=== PATIENT | female | born 1940 | race Caucasian/White ===

== ENCOUNTER 2020-08-02 13:41 | Inpatient (IN) | payer MEDICARE, OTHER ==
[2020-08-02] MEDS ORDERED: Dexamethasone 4 MG Tab PO PRN (21:52)
[2020-08-02] MEDS ORDERED: Non-Formulary Medication 1 Each PO PRN (21:52)
[2020-08-02] MEDS ORDERED: Non-Formulary Medication 1 Each (Olanzapine [Olanzapine] 10 MG Tablet) PO PRN (21:52)
[2020-08-02] MEDS ORDERED: Prochlorperazine 5 MG Tab PO PRN (21:52)
[2020-08-02] MEDS ORDERED: Lidocaine/Prilocaine 2.5-2.5% Crm 30 GM Tube TOP PRN (21:52)
[2020-08-02] MEDS ORDERED: Ondansetron 4 MG Tab.DIS PO PRN (21:52)
[2020-08-02] MEDS ORDERED: diphenhydrAMINE 25 MG Cap PO PRN (21:52)
[2020-08-02] MEDS ORDERED: MAGNESIUM HYDROXIDE PO PRN (21:52)
[2020-08-02] MEDS: Acetaminophen 325 MG Tab PO PRN (22:21)
[2020-08-02] MEDS: traMADol 50 MG Tab PO PRN (23:11)
[2020-08-02] MEDS: Simvastatin 20 MG Tab PO SCH (23:11)
[2020-08-03] MEDS ORDERED: MAG HYDROX PO PRN ×3 (05:47)
[2020-08-03] MEDS ORDERED: ALUM HYDROX PO PRN ×3 (05:47)
[2020-08-03] MEDS ORDERED: LIDOCAINE PO PRN ×3 (05:47)
[2020-08-03] MEDS ORDERED: SIMETH PO PRN ×3 (05:47)
[2020-08-03] MEDS ORDERED: DIPHENHYDRAMINE PO PRN ×3 (05:47)
[2020-08-03 08:06] LABS: ANION GAP 7.1 mmol/L (5-15); CHLORIDE,CL 101 mmol/L (98-107); SODIUM,NA 142 mmol/L (136-145)
[2020-08-03] MEDS: Hydrochlorothiazide 25 MG Tab PO SCH (08:23)
[2020-08-03] MEDS: Ascorbic Acid 500 MG Tab PO SCH (08:23)
[2020-08-03] MEDS: Aspirin 81 MG Tab.EC PO SCH ×2 (08:23→08:30)
[2020-08-03] MEDS ORDERED: Losartan 50 MG Tab PO SCH ×2 (09:00→13:30)
[2020-08-03] MEDS ORDERED: Hydrochlorothiazide 12.5 MG Cap PO SCH (09:00)
[2020-08-03] MEDS: Enoxaparin 40 MG/0.4 ML Syringe SUBCUT SCH (09:16)
[2020-08-03] MEDS: Docusate Sodium 100 MG Cap PO PRN (09:16)
[2020-08-03] MEDS: traMADol 50 MG Tab PO PRN ×2 (09:47→20:59)
[2020-08-03] MEDS ORDERED: Potassium Chloride 20 MEQ Tab.ER PO SCH (10:00)
--- NOTE | 2020-08-03 13:24 | PCM.HP.2 ---
H&P History of Present Illness - General Date of Service: 08/03/20 Admit Problem/Dx: Admission Diagnosis/Problem Admission Diagnosis/Problem Hysterectomy Source of Information: Patient History Limitations: Reports: No Limitations - History of Present Illness Initial Comments - Free Text/Narative: 79yr old female with a clinicalStage IIIC ovarian cancer, s/p Robotic total la paroscopic hysterectomy, left salpingo oophorectomy, omentectomy, tumor debulking, TAPS block on 07/30/2020. he tolerated the procedure well and was transferred to the [facility] floor in stable condition. Postoperatively, she did well. On postop day #1, she was tolerating a regular diet however had some nausea that was relieved by anti-emetics. Pain was well controlled on oral pain medications. Her creatinine was normal. Her hematocrit was stable and she was started on prophylactic doses of Lovenox. Her Fuller catheter was removed. She was able to void without difficulty. On postop day #2 she was hypoxic and required 0.5-1L O2. Chest X-ray revealed left large pleural effusion. She subsequently underwent a thoracentesis and had 950 ml of serous fluid removed. O2 sats improved to 92% on RA. She was hypokalemic upon discharge. Recommendations were for 40 mEq oral potassium. Her daughter transferred her to swing bed at the [facility]. Left Back Pain Score (Numeric/FACES): 4 - Related Data Allergies/Adverse Reactions: Allergies Allergy/AdvReac Type Severity Reaction Status Date / Time albuterol Allergy Tachycardia Verified 08/02/20 19:36 Home Medications: Home Meds Ascorbic Acid 500 mg PO DAILY 08/02/20 [History] Aspirin [Halfprin] 81 mg PO DAILY 08/02/20 [History] Cholecalciferol (Vitamin D3) [Vitamin D3] 400 unit PO DAILY 08/02/20 [History] Enoxaparin [Lovenox] 40 mg SUBCUT DAILY 08/02/20 [History] Lidocaine/Prilocaine [EMLA Crm] 1 applic TOP ASDIRECTED PRN 08/02/20 [History] Losartan/Hydrochlorothiazide [Losartan-HCTZ 50-12.5 MG] 1 tab PO DAILY 08/02/20 [History] Magnesium Hydroxide [Alvarez' Milk of Magnesia] 311 mg PO DAILY PRN 08/02/20 [History] Non-Formulary Medication [NF Drug] 15 ml PO Q6HR PRN 08/02/20 [History] OLANZapine [Olanzapine] 10 mg PO ASDIRECTED PRN 08/02/20 [History] Ondansetron [Zofran ODT] 8 mg PO TID PRN 08/02/20 [History] Prochlorperazine [Compazine] 10 mg PO QID PRN 08/02/20 [History] Simvastatin [Zocor] 20 mg PO BEDTIME 08/02/20 [History] dexAMETHasone [Dexamethasone] 8 mg PO ASDIRECTED PRN 08/02/20 [History] diphenhydrAMINE [Benadryl] 25 - 50 mg PO Q4HR PRN 08/02/20 [History] hydroCHLOROthiazide [Hydrochlorothiazide] 12.5 mg PO DAILY 08/02/20 [History] traMADol [Ultram] 50 - 100 mg PO Q6H PRN 08/02/20 [History] Past Medical History Cardiovascular History: Reports: Arrhythmia, High Cholesterol Respiratory History: Reports: Other (See Below) Other Respiratory History: 08/02/20 Left Pleural Effusion with thoracentesis producing 950ml Genitourinary History: Reports: Renal Calculus Hematologic History: Reports: Iron Deficiency, Other (See Below) Other Hematologic History: Thrombocytosis Oncologic (Cancer) History: Reports: Breast, Ovarian, Other (See Below) Other Oncologic History: Stage 3C Ovarian cancer, Stage 2B Right breast cancer. Breast cancer recently diagnosed with plans for lumpectomy/mastectomy once treatment completed for ovarian cancer - Infectious Disease History Infectious Disease History: Reports: Chicken Pox - Past Surgical History Respiratory Surgical History: Reports: Thoracentesis GI Surgical History: Reports: Other (See Below) Other GI Surgeries/Procedures: Omentectomy 07/31/20 Female Surgical History: Reports: Hysterectomy, Salpingo-Oophorectomy Other Female Surgeries/Procedures: 07/31/20 Hysterectomy with Left Salpingo- oophorectomy Oncologic Surgical History: Reports: Other (See Below) Other Oncologic Surgeries/Procedures: 07/31/20 Hysterectomy, Left Salpingo- oophorectomy, Omentectomy, Tumor debulking Social & Family History - Family History Cardiac: Reports: Hypertension, Other (See Below) (heart disease) : Reports: Renal Disease/Insufficiency Oncologic: Reports: Lung - Tobacco Use Tobacco Use Status *Q: Never Tobacco User - Recreational Drug Use Recreational Drug Use: No H&P Review of Systems - Review of Systems: Review Of Systems: See Below General: Denies: Fever, Chills, Weakness, Fatigue, Decreased Appetite HEENT: Denies: Ear Pain, Headaches, Sinus Congestion, Sore Throat, Visual Changes Pulmonary: Denies: Shortness of Breath, Wheezing, Cough Cardiovascular: Denies: Chest Pain, Palpitations, Edema, Lightheadedness Gastrointestinal: Reports: Abdominal Pain (improving, around incision sites), Flatus. Denies: Constipation, Diarrhea, Nausea, Vomiting Genitourinary: Denies: Dysuria, Urgency, Hematuria Musculoskeletal: Denies: Neck Pain, Back Pain, Joint Swelling Skin: Reports: Wound (surgical ). Denies: Cyanosis, Jaundice, Pallor Psychiatric: Denies: Confusion, Mood Lability, Anxiety Neurological: Denies: Confusion, Headache, Trouble Speaking, Difficulty Walking Exam - Exam Exam: See Below - Vital Signs Vital Signs: Last Vital Signs Temp 36.4 C 08/03/20 06:34 Pulse 73 08/03/20 06:34 Resp 20 08/03/20 06:34 BP 167/55 H 08/03/20 08:23 Pulse Ox 96 08/03/20 06:34 Weight: 47.536 kg - Exam Physical Exam Comments:: GENERAL: Well-appearing adult in no acute distress. HEENT: Normocephalic, atraumatic. Conjunctiva clear. Nares patent without discharge. Mucous membranes moist, posterior pharynx unremarkable. NECK: Supple, no masses. CV: Regular rate and rhythm, no murmurs, rubs, or gallops. 2+ radial pulses. PULMONARY: Normal effort, diminished to auscultation bilaterally, no wheezes, rales, or rhonchi. ABDOMEN: Positive bowel sounds, soft, nontender, nondistended. Two surgical sites with steri strips intact, no drainage noted EXTREMITIES: No edema, cyanosis, or clubbing. MUSCULOSKELETAL: Moves all extremities well. NEUROLOGICAL: No obvious deficits. DERMATOLOGIC: No rashes or suspicious lesions in exposed areas. PSYCHIATRIC: Alert, interactive, appropriate affect. - Patient Data Lab Results Last 24 hrs: Laboratory Results - last 24 hr 08/02/20 08/03/20 08/03/20 Range/Units 19:25 07:28 07:28 WBC 4.03 L (5.00-10.00) 10^3/uL RBC 3.07 L (3.80-5.50) 10^6/uL Hgb 10.1 L (12.0-16.0) g/dL Hct 30.7 L (37.0-47.0) % MCV 100.0 H (82.0-92.0) fL MCH 32.9 H (27.0-31.0) pg MCHC 32.9 (32.0-36.0) g/dL RDW 20.3 H (11.5-14.5) % Plt Count 442 H (150-400) 10^3/uL MPV 9.0 (7.4-10.4) fL Immature Gran % (Auto) 0.0 (0.0-5.0) % Neut % (Auto) 66.2 (50.0-70.0) % Lymph % (Auto) 16.9 L (20.0-40.0) % Stewart % (Auto) 15.4 H (2.0-8.0) % Eos % (Auto) 1.0 (1.0-3.0) % Baso % (Auto) 0.5 (0.0-1.0) % Neut # (Auto) 2.67 (2.50-7.00) 10^3/uL Lymph # (Auto) 0.68 L (1.00-4.00) 10^3/uL Stewart # (Auto) 0.62 (0.10-0.80) 10^3/uL Eos # (Auto) 0.04 L (0.10-0.30) 10^3/uL Baso # (Auto) 0.02 (0.00-0.10) 10^3/uL Immature Gran # (Auto) 0.00 (0.00-0.50) 10^3/uL Sodium 142 (136-145) mmol/L Potassium 3.3 L (3.5-5.1) mmol/L Chloride 101 (98-107) mmol/L Carbon Dioxide 37.2 H (21.0-32.0) mmol/L Anion Gap 7.1 (5-15) mmol/L BUN 9 (7-18) mg/dL Creatinine 0.70 (0.51-1.17) mg/dL Est Cr Clr Drug Dosing 48.34 mL/min Estimated GFR (MDRD) > 60 mL/min Glucose 102 (70-140) mg/dL Calcium 8.6 L (8.7-10.3) mg/dL SARS CoV-2 RNA Rapid ARELY Negative (NEGATIVE) Result Diagrams: 08/03/20 07:28 08/03/20 07:28 Sepsis Event Note - Evaluation Sepsis Screening Result: No Definite Risk - Focused Exam Vital Signs: Vital Signs Temp Pulse Resp BP BP Pulse Ox 08/03/20 08:23 167/55 H 08/03/20 06:34 36.4 C 73 20 167/55 H 96 Problem List Initiated/Reviewed/Updated: Yes Orders Last 24hrs: Active Orders 24 hr Category Date Time Status Patient Status [ADT] Routine ADT 08/02/20 22:11 Active Communication Order [RC] DAILY Care 08/03/20 03:24 Active Oxygen Therapy [RC] PRN Care 08/02/20 22:11 Active Up With Assistance [RC] ASDIRECTED Care 08/02/20 22:19 Active VTE/DVT Education [RC] PER UNIT ROUTINE Care 08/02/20 22:11 Active Vital Signs [RC] 07,19 Care 08/02/20 22:11 Active Regular Diet [DIET] Diet 08/03/20 Breakfast Active BMP [BASIC METABOLIC PANEL,BMP] [CHEM] AM Lab 08/04/20 05:11 Ordered Acetaminophen [TylenoL] Med 08/02/20 22:09 Active 650 mg PO Q4H PRN Alum Hydrox/Mag Hydrox/Simeth [Mag-Al Plus] 5 ml Med 08/03/20 05:47 Active Lidocaine 2% [Xylocaine 2% Viscous] 5 ml diphenhydrAMINE [Benadryl] 12.5 mg PO Q6H Ascorbic Acid [Vitamin C] Med 08/03/20 09:00 Active 500 mg PO DAILY Aspirin [Halfprin] Med 08/03/20 09:00 Active 81 mg PO DAILY Cholecalciferol (Vitamin D3) [Vitamin D3] Med 08/03/20 11:15 Active 25 mcg PO DAILY Docusate Sodium [Colace] Med 08/03/20 08:30 Active 100 mg PO BID PRN Enoxaparin [Lovenox] Med 08/03/20 09:00 Active 40 mg SUBCUT DAILY Losartan [Cozaar] Med 08/03/20 13:30 Ordered 75 mg PO DAILY Ondansetron [Zofran ODT] Med 08/02/20 21:52 Active 8 mg PO TID PRN Potassium Chloride [Klor-Con 10] Med 08/04/20 09:00 Ordered 20 meq PO DAILY Simvastatin [Zocor] Med 08/02/20 22:30 Active 20 mg PO BEDTIME diphenhydrAMINE [Benadryl] Med 08/02/20 21:52 Active 25 - 50 mg PO Q4H PRN hydroCHLOROthiazide Med 08/03/20 09:00 Active 25 mg PO DAILY traMADol [Ultram] Med 08/02/20 21:52 Active 50 - 100 mg PO Q6H PRN Code Status [Resuscitation Status] Routine Resus Stat 08/02/20 21:51 Ordered Medication Orders Acetaminophen (Acetaminophen 325 Mg Tab) 650 mg PO Q4H PRN PRN Reason: Pain Last Admin: 08/02/20 22:21 Dose: 650 mg Documented by: BREANA Ascorbic Acid (Ascorbic Acid 500 Mg Tab) 500 mg PO DAILY [facility] Last Admin: 08/03/20 08:23 Dose: 500 mg Documented by: CUATE Aspirin (Aspirin 81 Mg Tab.Ec) 81 mg PO DAILY [facility] Last Admin: 08/03/20 08:30 Dose: Not Given Documented by: CUATE Cholecalciferol (Cholecalciferol (Vitamin D3) 25 Mcg Tab) 25 mcg PO DAILY [facility] Al Hydroxide/Mg Hydroxide 5 ml / Lidocaine HCl 5 ml/Diphenhydramine HCl 12.5 mg 0 ml PO Q6H PRN PRN Reason: MILD OR MODERATE ORAL PAIN Diphenhydramine HCl (Diphenhydramine 25 Mg Cap) 25 - 50 mg PO Q4H PRN PRN Reason: Other Docusate Sodium (Docusate Sodium 100 Mg Cap) 100 mg PO BID PRN PRN Reason: Constipation Last Admin: 08/03/20 09:16 Dose: 100 mg Documented by: CUATE Enoxaparin Sodium (Enoxaparin 40 Mg/0.4 Ml Syringe) 40 mg SUBCUT DAILY [facility] Last Admin: 08/03/20 09:16 Dose: 40 mg Documented by: CUATE Hydrochlorothiazide (Hydrochlorothiazide 25 Mg Tab) 25 mg PO DAILY [facility] Last Admin: 08/03/20 08:23 Dose: 25 mg Documented by: CUATE Losartan Potassium (Losartan 50 Mg Tab) 75 mg PO DAILY [facility] Ondansetron HCl (Ondansetron 4 Mg Tab.Dis) 8 mg PO TID PRN PRN Reason: Nausea/Vomiting Potassium Chloride (Potassium Chloride 10 Meq Tab.Er) 20 meq PO DAILY DINORAH Simvastatin (Simvastatin 20 Mg Tab) 20 mg PO BEDTIME DINORAH Last Admin: 08/02/20 23:11 Dose: 20 mg Documented by: BREANA Tramadol HCl (Tramadol 50 Mg Tab) 50 - 100 mg PO Q6H PRN PRN Reason: Pain (moderate 4-6) Last Admin: 08/03/20 09:47 Dose: 50 mg Documented by: Admin: 08/02/20 23:11 Dose: 50 mg Documented by: BREANA Assessment/Plan Comment:: HPI summary: 79yr old female with a clinicalStage IIIC ovarian cancer, s/p Robotic total laparoscopic hysterectomy, left salpingo oophorectomy, omentectomy, tumor debulking, TAPS block on 07/30/2020. he tolerated the procedure well and was transferred to the [facility] floor in stable condition. Postoperatively, she did well. On postop day #1, she was tolerating a regular diet however had some nausea that was relieved by anti-emetics. Pain was well controlled on oral pain medications. Her creatinine was normal. Her hematocrit was stable and she was started on prophylactic doses of Lovenox. Her Fuller catheter was removed. She was able to void without difficulty. On postop day #2 she was hypoxic and required 0.5-1L O2. Chest X-ray revealed left large pleural effusion. She subsequently underwent a thoracentesis and had 950 ml of serous fluid removed. O2 sats improved to 92% on RA. She was hypokalemic upon discharge. Recommendations were for 40 mEq oral potassium. Patient was also apparently given IV potassium by her daughter who is a nurse prior to transport. Her daughter transferred her to swing bed at the [facility]. Hospital course: 08/03/2020: Patient reports no overnight concerns. She denies shortness of breath or cough but continues to have an oxygen demand at 2 L per nasal cannula with sats of 96%. Afebrile with a pulse of 73 and respirations of 20. Blood pressure is elevated at 167/55. This also appears to have been the case while she was in the hospital per patient report and chart review. Will increase patient's losartan to 75 mg daily. Labs this a.m. revealed WBC of 4.03, RBCs 3.07, hemoglobin 10.1 which is stable, hematocrit 30.7, platelets 442. Potassium today is 3.3. CO2 is 37.2 and calcium is 8.6. Patient given one-time oral dose of potassium 40 mEq by mouth with decrease in oral potassium to 20 mEq starting tomorrow as well need close monitoring of potassium given increase in ARB as well as oral potassium. This will be rechecked in the a.m. Patient reports mild pain to her incisional sites on her abdomen and does have oral tramadol ordered which is controlling her pain. Hospitalization problems and plan: # Ovarian cancer, status post robotic total laparoscopic hysterectomy on 07/30/2020 -PT eval and treat for strengthening -Continue tramadol -Continue enoxaparin # S/P thoracentesis of 950 mL clear fluid -Continue oxygen to keep saturation greater than 92% -IS with pulmonary toileting # hypokalemia -Oral potassium replacement -Recheck BMP in the a.m. #Hypertension -Continue HCTZ 25 mg -Increased losartan to 75 mg daily -Recheck BMP in the a.m. Chronic, stable conditions: #Pure hypercholesterolemia, continue simvastatin #Thrombocytosis , stable #Iron deficiency, continue vitamin C #Infiltrating ductal carcinoma of right breast, when necessary post-chemo medications added to list Hospitalization details: # FEN: Tolerating oral intake, electrolytes stable with exception of mildly decreased potassium at 3.3 oral supplementation ordered, diet as tolerated # PPX: Continue enoxaparin 40 mg, aspirin being held for 30 days postop # Code status: Full code per conversation with patient # Emergency contact: Daughter will be updated by Nursing # Disposition: Plan for discharge home after physical therapy for strengthening postop - Mortality Measure Prognosis:: Good
[2020-08-03] MEDS ORDERED: Losartan 25 MG Tab PO ONE (13:45)
[2020-08-03] MEDS: Cholecalciferol (Vitamin D3) 25 MCG Tab PO SCH (14:10)
[2020-08-03] MEDS: Simvastatin 20 MG Tab PO SCH (20:05)
[2020-08-03] MEDS: Acetaminophen 325 MG Tab PO PRN (20:09)
[2020-08-04 08:00] LABS: ANION GAP 6.6 mmol/L (5-15); CHLORIDE,CL 103 mmol/L (98-107); SODIUM,NA 142 mmol/L (136-145)
[2020-08-04] MEDS ORDERED: Potassium Chloride 20 MEQ Tab.ER PO SCH (08:00)
[2020-08-04] MEDS: Cholecalciferol (Vitamin D3) 25 MCG Tab PO SCH (08:18)
[2020-08-04] MEDS: Ascorbic Acid 500 MG Tab PO SCH (08:18)
[2020-08-04] MEDS: Losartan 50 MG Tab PO SCH (08:18)
[2020-08-04] MEDS: Docusate Sodium 100 MG Cap PO PRN ×2 (08:18→18:22)
[2020-08-04] MEDS: Hydrochlorothiazide 25 MG Tab PO SCH (08:19)
[2020-08-04] MEDS: Enoxaparin 40 MG/0.4 ML Syringe SUBCUT SCH (08:19)
[2020-08-04] MEDS ORDERED: Potassium Chloride 10 MEQ Tab.ER PO SCH (09:00)
--- NOTE | 2020-08-04 12:05 | PCM.PN ---
- General Info Date of Service: 08/04/20 Subjective Update: Patient reports no overnight concerns. Pain controlled. Some fatigue. Functional Status: Reports: Pain Controlled, Tolerating Diet, Ambulating, Urinating, Incentive Spirometry - Review of Systems General: Reports: Fatigue. Denies: Fever, Chills HEENT: Denies: Headaches, Sinus Congestion, Sore Throat Pulmonary: Denies: Shortness of Breath, Cough, Wheezing Cardiovascular: Denies: Chest Pain, Palpitations, Edema Gastrointestinal: Denies: Abdominal Pain, Diarrhea, Nausea Genitourinary: Denies: Dysuria, Urgency, Hematuria Neurological: Denies: Trouble Speaking, Difficulty Walking - Patient Data Vitals - Most Recent: Last Vital Signs Temp 36.3 C 08/04/20 06:24 Pulse 75 08/04/20 06:24 Resp 16 08/04/20 06:24 BP 157/53 H 08/04/20 08:18 Pulse Ox 98 08/04/20 06:24 Weight - Most Recent: 47.536 kg I&O - Last 24 Hours: Intake & Output 08/03/20 08/04/20 08/04/20 22:59 06:59 14:59 Intake Total 350 120 Output Total 200 Balance 150 120 Lab Results Last 24 Hours: Laboratory Results - last 24 hr 08/04/20 Range/Units 07:30 Sodium 142 (136-145) mmol/L Potassium 4.0 (3.5-5.1) mmol/L Chloride 103 (98-107) mmol/L Carbon Dioxide 36.4 H (21.0-32.0) mmol/L Anion Gap 6.6 (5-15) mmol/L BUN 5 L (7-18) mg/dL Creatinine 0.74 (0.51-1.17) mg/dL Est Cr Clr Drug Dosing 45.73 mL/min Estimated GFR (MDRD) > 60 mL/min Glucose 103 (70-140) mg/dL Calcium 8.5 L (8.7-10.3) mg/dL Med Orders - Current: Current Medications Acetaminophen (Acetaminophen 325 Mg Tab) 650 mg PO Q4H PRN PRN Reason: Pain Last Admin: 08/03/20 20:09 Dose: 650 mg Documented by: Ascorbic Acid (Ascorbic Acid 500 Mg Tab) 500 mg PO DAILY [facility] Last Admin: 08/04/20 08:18 Dose: 500 mg Documented by: Cholecalciferol (Cholecalciferol (Vitamin D3) 25 Mcg Tab) 25 mcg PO DAILY [facility] Last Admin: 08/04/20 08:18 Dose: 25 mcg Documented by: Al Hydroxide/Mg Hydroxide 5 ml / Lidocaine HCl 5 ml/Diphenhydramine HCl 12.5 mg 0 ml PO Q6H PRN PRN Reason: MILD OR MODERATE ORAL PAIN Diphenhydramine HCl (Diphenhydramine 25 Mg Cap) 25 - 50 mg PO Q4H PRN PRN Reason: Other Docusate Sodium (Docusate Sodium 100 Mg Cap) 100 mg PO BID PRN PRN Reason: Constipation Last Admin: 08/04/20 08:18 Dose: 100 mg Documented by: Enoxaparin Sodium (Enoxaparin 40 Mg/0.4 Ml Syringe) 40 mg SUBCUT DAILY [facility] Last Admin: 08/04/20 08:19 Dose: 40 mg Documented by: Hydrochlorothiazide (Hydrochlorothiazide 25 Mg Tab) 25 mg PO DAILY [facility] Last Admin: 08/04/20 08:19 Dose: 25 mg Documented by: Losartan Potassium (Losartan 50 Mg Tab) 75 mg PO DAILY [facility] Last Admin: 08/04/20 08:18 Dose: 75 mg Documented by: Ondansetron HCl (Ondansetron 4 Mg Tab.Dis) 8 mg PO TID PRN PRN Reason: Nausea/Vomiting Simvastatin (Simvastatin 20 Mg Tab) 20 mg PO BEDTIME [facility] Last Admin: 08/03/20 20:05 Dose: 20 mg Documented by: Tramadol HCl (Tramadol 50 Mg Tab) 50 - 100 mg PO Q6H PRN PRN Reason: Pain (moderate 4-6) Last Admin: 08/03/20 20:59 Dose: 50 mg Documented by: Discontinued Medications Aspirin (Aspirin 81 Mg Tab.Ec) 81 mg PO DAILY [facility] Last Admin: 08/03/20 08:30 Dose: Not Given Documented by: Dexamethasone (Dexamethasone 4 Mg Tab) 8 mg PO ASDIRECTED PRN PRN Reason: Inflammation Hydrochlorothiazide (Hydrochlorothiazide 12.5 Mg Cap) 12.5 mg PO DAILY [facility] Last Admin: 08/03/20 14:11 Dose: Not Given Documented by: Lidocaine/Prilocaine (Lidocaine/Prilocaine 2.5-2.5% Crm 30 Gm Tube) gm TOP ASDIRECTED PRN PRN Reason: Other Losartan Potassium (Losartan 50 Mg Tab) 50 mg PO DAILY [facility] Last Admin: 08/03/20 08:23 Dose: 50 mg Documented by: Losartan Potassium (Losartan 25 Mg Tab) 25 mg PO ONETIME ONE Stop: 08/03/20 13:46 Last Admin: 08/03/20 14:10 Dose: 25 mg Documented by: Non-Formulary Medication (Non-Formulary Medication 1 Each) each PO Q6HR PRN PRN Reason: Pain Non-Formulary Medication (Magnesium Hydroxide [Alvarez' Milk Of Magnesia]) 311 mg PO DAILY PRN PRN Reason: Constipation Non-Formulary Medication (Olanzapine [Olanzapine]) 10 mg PO ASDIRECTED PRN PRN Reason: Other Potassium Chloride (Potassium Chloride 20 Meq Tab.Er) 40 meq PO WITHBREAKFAST [facility] Last Admin: 08/03/20 10:09 Dose: 40 meq Documented by: Potassium Chloride (Potassium Chloride 10 Meq Tab.Er) 30 meq PO DAILY [facility] Potassium Chloride (Potassium Chloride 20 Meq Tab.Er) 20 meq PO DAILY@0800 [facility] Last Admin: 08/04/20 08:18 Dose: 20 meq Documented by: Potassium Chloride (Potassium Chloride 10 Meq Tab.Er) 20 meq PO DAILY@0800 [facility] Prochlorperazine Maleate (Prochlorperazine 5 Mg Tab) 10 mg PO QID PRN PRN Reason: Nausea/Vomiting - Exam Physical Findings Comments:: GENERAL: Well-appearing adult in no acute distress. HEENT: Normocephalic, atraumatic. Conjunctiva clear. Nares patent without discharge. Mucous membranes moist, posterior pharynx unremarkable. NECK: Supple, no masses. CV: Regular rate and rhythm, no murmurs, rubs, or gallops. 2+ radial pulses. PULMONARY: Normal effort, clear to auscultation bilaterally, no wheezes, rales, or rhonchi. ABDOMEN: Positive bowel sounds, soft, nontender, nondistended. EXTREMITIES: No edema, cyanosis, or clubbing. MUSCULOSKELETAL: Moves all extremities well. NEUROLOGICAL: No obvious deficits. DERMATOLOGIC: No rashes or suspicious lesions in exposed areas. PSYCHIATRIC: Alert, interactive, appropriate affect. - Patient Data Lab Results Last 24 hrs: Laboratory Results - last 24 hr 08/04/20 Range/Units 07:30 Sodium 142 (136-145) mmol/L Potassium 4.0 (3.5-5.1) mmol/L Chloride 103 (98-107) mmol/L Carbon Dioxide 36.4 H (21.0-32.0) mmol/L Anion Gap 6.6 (5-15) mmol/L BUN 5 L (7-18) mg/dL Creatinine 0.74 (0.51-1.17) mg/dL Est Cr Clr Drug Dosing 45.73 mL/min Estimated GFR (MDRD) > 60 mL/min Glucose 103 (70-140) mg/dL Calcium 8.5 L (8.7-10.3) mg/dL Result Diagrams: 08/03/20 07:28 08/04/20 07:30 Sepsis Event Note - Evaluation Sepsis Screening Result: No Definite Risk - Focused Exam Vital Signs: Vital Signs Temp Pulse Resp BP BP Pulse Ox 08/04/20 08:18 157/53 H 08/04/20 06:24 36.3 C 75 16 157/53 H 98 - Problem List Review Problem List Initiated/Reviewed/Updated: Yes - My Orders Last 24 Hours: My Active Orders 08/03/20 11:15 Cholecalciferol (Vitamin D3) [Vitamin D3] 25 mcg PO DAILY 08/03/20 18:16 PT Evaluation and Treatment [CONS] Routine 08/03/20 18:18 IS (RT) [RT Incentive Spirometry] [RC] Q1HWA 08/04/20 09:00 Losartan [Cozaar] 75 mg PO DAILY 08/05/20 05:11 BMP [BASIC METABOLIC PANEL,BMP] [CHEM] AM - Plan Plan:: HPI summary: 79yr old female with a clinicalStage IIIC ovarian cancer, s/p Robotic total laparoscopic hysterectomy, left salpingo oophorectomy, omentectomy, tumor debulking, TAPS block on 07/30/2020. he tolerated the procedure well and was transferred to the [facility] floor in stable condition. Postoperatively, she did well. On postop day #1, she was tolerating a regular diet however had some nausea that was relieved by anti-emetics. Pain was well controlled on oral pain medications. Her creatinine was normal. Her hematocrit was stable and she was started on prophylactic doses of Lovenox. Her Fuller catheter was removed. She was able to void without difficulty. On postop day #2 she was hypoxic and required 0.5-1L O2. Chest X-ray revealed left large pleural effusion. She subseq uently underwent a thoracentesis and had 950 ml of serous fluid removed. O2 sats improved to 92% on RA. She was hypokalemic upon discharge. Recommendations were for 40 mEq oral potassium. Patient was also apparently given IV potassium by her daughter who is a nurse prior to transport. Her daughter transferred her to swing bed at the [facility]. Hospital course: 08/03/2020: Patient reports no overnight concerns. She denies shortness of breath or cough but continues to have an oxygen demand at 2 L per nasal cannula with sats of 96%. Afebrile with a pulse of 73 and respirations of 20. Blood pressure is elevated at 167/55. This also appears to have been the case while she was in the hospital per patient report and chart review. Will increase patient's losartan to 75 mg daily. Labs this a.m. revealed WBC of 4.03, RBCs 3.07, hemoglobin 10.1 which is stable, hematocrit 30.7, platelets 442. Potassium today is 3.3. CO2 is 37.2 and calcium is 8.6. Patient given one-time oral dose of potassium 40 mEq by mouth with decrease in oral potassium to 20 mEq starting tomorrow as well need close monitoring of potassium given increase in ARB as well as oral potassium. This will be rechecked in the a.m. Patient reports mild pain to her incisional sites on her abdomen and does have oral tramadol ordered which is controlling her pain. 08/04/2020: Patient reports no overnight concerns. Tolerating diet, voiding and passing flatus. Patient continues to be on oxygen 1L/NC with a sat of 98%, will likely be able to wean this off in the coming days. She was able to get her IS up to 500 today, which is improved from 250. Blood pressure somewhat improved today at 157/53. Will not make any further changes to her ARB at this time. Potassium is 4.0, will discontinue oral potassium. Suspect hypokalemia likely due to diuresis during acute hospital stay. BMP in the AM Hospitalization problems and plan: # Ovarian cancer, status post robotic total laparoscopic hysterectomy on 07/30/2020 -PT eval and treat for strengthening -Continue tramadol -Continue enoxaparin # S/P thoracentesis of 950 mL clear fluid -Continue oxygen to keep saturation greater than 92% -IS with pulmonary toileting # hypokalemia, resolved -discontinue potassium -Recheck BMP in the a.m. #Hypertension -Continue HCTZ 25 mg -Continue losartan to 75 mg daily -Recheck BMP in the a.m. Chronic, stable conditions: #Pure hypercholesterolemia, continue simvastatin #Thrombocytosis , stable #Iron deficiency, continue vitamin C #Infiltrating ductal carcinoma of right breast, when necessary post-chemo medications added to list Hospitalization details: # FEN: Tolerating oral intake, electrolytes stable, diet as tolerated # PPX: Continue enoxaparin 40 mg, aspirin being held for 30 days postop # Code status: Full code # Emergency contact: Daughter will be updated by Nursing # Disposition: Plan for discharge home after physical therapy for strengthening postop
[2020-08-04] MEDS: Acetaminophen 325 MG Tab PO PRN (18:08)
[2020-08-04] MEDS: traMADol 50 MG Tab PO PRN (20:42)
[2020-08-04] MEDS: Simvastatin 20 MG Tab PO SCH (20:42)
[2020-08-04] MEDS ORDERED: Magnesium Hydroxide 400 MG/5 ML Susp 30 ML Cup PO PRN (23:09)
[2020-08-05] MEDS ORDERED: Potassium Chloride 10 MEQ Tab.ER PO SCH (08:00)
[2020-08-05 08:08] LABS: ANION GAP 6.8 mmol/L (5-15); CHLORIDE,CL 105 mmol/L (98-107); SODIUM,NA 143 mmol/L (136-145)
[2020-08-05] MEDS ORDERED: Polyethylene Glycol 3350 Powder 17 GM Packet PO PRN (08:30)
[2020-08-05] MEDS: Enoxaparin 40 MG/0.4 ML Syringe SUBCUT SCH (08:41)
[2020-08-05] MEDS: Ascorbic Acid 500 MG Tab PO SCH (08:43)
[2020-08-05] MEDS: Losartan 50 MG Tab PO SCH (08:44)
[2020-08-05] MEDS: Hydrochlorothiazide 25 MG Tab PO SCH (08:44)
[2020-08-05] MEDS: Cholecalciferol (Vitamin D3) 25 MCG Tab PO SCH (08:44)
[2020-08-05] MEDS ORDERED: Magnesium Hydroxide 400 MG/5 ML Susp 30 ML Cup PO PRN (14:50)
[2020-08-05] MEDS: Simvastatin 20 MG Tab PO SCH (21:00)
[2020-08-06] MEDS: Hydrochlorothiazide 25 MG Tab PO SCH (09:00)
[2020-08-06] MEDS: Ascorbic Acid 500 MG Tab PO SCH (09:00)
[2020-08-06] MEDS: Cholecalciferol (Vitamin D3) 25 MCG Tab PO SCH (09:00)
[2020-08-06] MEDS: Losartan 50 MG Tab PO SCH (09:00)
[2020-08-06] MEDS: Enoxaparin 40 MG/0.4 ML Syringe SUBCUT SCH (09:01)
--- NOTE | 2020-08-06 11:07 | PCM.DCSUM1 ---
Discharge Summary - Hospital Course Diagnosis: Stroke: No - Discharge Data Discharge Date: 08/06/20 Discharge Disposition: Home, W Home Health Agency 06 Condition: Good - Referral to Home Health Date of Face to Face Encounter: 08/06/20 Reason for Homebound Status: This is an order and a [id number] encounter for home health services to include physical therapy and Occupational Therapy. Help in his home therapy program to address limited strength and endurance along with muscle weakness due to recent hysterectomy and cancer. It was in swing bed therapy at [facility] however patient strongly desires to go home and although was released by physical therapy she still will need PT/OT to help with ADLs, her unsteady gait and to monitor her oxygen saturations. Be homebound due to recent surgery, weakness and the requirement of having occupational and physical therapy. The patient will be followed by myself Joel Pizarro in the community setting and will sign home health orders Primary Care Physician: Lyric Starr PA-C Skilled Need: Physical therapy/Occupational Therapy - Patient Summary/Data Consults: Consultations 08/03/20 18:16 PT Evaluation and Treatment [CONS] Routine - Patient Instructions Diet: Usual Diet as Tolerated Activity: Cough & Deep Breathe Driving: Do Not Drive Showering/Bathing: May Shower Notify Provider of: Fever, Increased Pain, Nausea and/or Vomiting - Discharge Plan *PRESCRIPTION DRUG MONITORING PROGRAM REVIEWED*: Not Applicable *COPY OF PRESCRIPTION DRUG MONITORING REPORT IN PATIENT ONI: Not Applicable Home Medications: Home Meds Ascorbic Acid 500 mg PO DAILY 08/02/20 [History] Cholecalciferol (Vitamin D3) [Vitamin D3] 400 unit PO DAILY 08/02/20 [History] Enoxaparin [Lovenox] 40 mg SUBCUT DAILY 08/02/20 [History] Lidocaine/Prilocaine [EMLA Crm] 1 applic TOP ASDIRECTED PRN 08/02/20 [History] Losartan/Hydrochlorothiazide [Losartan-HCTZ 50-12.5 MG] 1 tab PO DAILY 08/02/20 [History] Magnesium Hydroxide [Alvarez' Milk of Magnesia] 311 mg PO DAILY PRN 08/02/20 [History] Non-Formulary Medication [NF Drug] 15 ml PO Q6HR PRN 08/02/20 [History] OLANZapine [Olanzapine] 10 mg PO ASDIRECTED PRN 08/02/20 [History] Ondansetron [Zofran Odt] 8 mg PO TID PRN 08/02/20 [History] Prochlorperazine [Compazine] 10 mg PO QID PRN 08/02/20 [History] Simvastatin [Zocor] 20 mg PO BEDTIME 08/02/20 [History] dexAMETHasone [Dexamethasone] 8 mg PO ASDIRECTED PRN 08/02/20 [History] diphenhydrAMINE [Benadryl] 25 - 50 mg PO Q4HR PRN 08/02/20 [History] hydroCHLOROthiazide [Hydrochlorothiazide] 12.5 mg PO DAILY 08/02/20 [History] traMADol [Ultram] 50 - 100 mg PO Q6H PRN 08/02/20 [History] - Discharge Summary/Plan Comment DC Time >30 min.: Yes Discharge Summary/Plan Comment: Final diagnosis --Ovarian cancer, status post robotic total laparoscopic hysterectomy on 07/30/2020 --S/P thoracentesis of 950 mL clear fluid Chronic, stable conditions: Pure hypercholesterolemia, continue simvastatin Thrombocytosis , stable Iron deficiency, continue vitamin C Infiltrating ductal carcinoma of right breast, HPI summary: 79yr old female with a clinicalStage IIIC ovarian cancer, s/p Robotic total laparoscopic hysterectomy, left salpingo oophorectomy, omentectomy, tumor debulking, TAPS block on 07/30/2020. he tolerated the procedure well and was transferred to the [facility] floor in stable condition. Postoperatively, she did well. On postop day #1, she was tolerating a regular diet however had some nausea that was relieved by anti-emetics. Pain was well controlled on oral pain medic ations. Her creatinine was normal. Her hematocrit was stable and she was started on prophylactic doses of Lovenox. Her Fuller catheter was removed. She was able to void without difficulty. On postop day #2 she was hypoxic and required 0.5-1L O2. Chest X-ray revealed left large pleural effusion. She subsequently underwent a thoracentesis and had 950 ml of serous fluid removed. O2 sats improved to 92% on RA. She was hypokalemic upon discharge. Recommendations were for 40 mEq oral potassium. Patient was also apparently given IV potassium by her daughter who is a nurse prior to transport. Her daughter transferred her to swing bed at the [facility]. Swing bed course: 08/03/2020: Patient reports no overnight concerns. She denies shortness of breath or cough but continues to have an oxygen demand at 2 L per nasal cannula with sats of 96%. Afebrile with a pulse of 73 and respirations of 20. Blood pressure is elevated at 167/55. This also appears to have been the case while she was in the hospital per patient report and chart review. Will increase patient's losartan to 75 mg daily. Labs this a.m. revealed WBC of 4.03, RBCs 3.07, hemoglobin 10.1 which is stable, hematocrit 30.7, platelets 442. Potassium today is 3.3. CO2 is 37.2 and calcium is 8.6. Patient given one-time oral dose of potassium 40 mEq by mouth with decrease in oral potassium to 20 mEq starting tomorrow as well need close monitoring of potassium given increase in ARB as well as oral potassium. This will be rechecked in the a.m. Patient reports mild pain to her incisional sites on her abdomen and does have oral tramadol ordered which is controlling her pain. 08/04/2020: Patient reports no overnight concerns. Tolerating diet, voiding and passing flatus. Patient continues to be on oxygen 1L/NC with a sat of 98%, will likely be able to wean this off in the coming days. She was able to get her IS up to 500 today, which is improved from 250. Blood pressure somewhat improved today at 157/53. Will not make any further changes to her ARB at this time. Potassium is 4.0, will discontinue oral potassium. Suspect hypokalemia likely due to diuresis during acute hospital stay. BMP in the AM 08/06/2020; rounds patient quite adamant about being discharged. Consulted with physical therapy and reviewed all physical therapy notes as she has refused multiple treatments as she feels she does not need physical therapy. After long discussion with patient, patient spouse and physical therapy I observed her 10:00 physical therapy session and she did meet many of the goals including mets, for I felt patient was deemed to be discharged as long as she was agreeable for home health therapy to include PT/OT. Patient is agreeable Patient changes/adjustments upon discharge Continue with enoxaparin 40 mg, x30 days postop, self-administered Hold ASA until Lovenox completion Disposition She will be discharged from swing bed therapy to home with PT/OT and home health. This is an order and a [id number] encounter for home health services to include physical therapy and Occupational Therapy. Help in his home therapy program to address limited strength and endurance along with muscle weakness due to recent hysterectomy and cancer. It was in swing bed therapy at [facility] however patient strongly desires to go home and although was released by physical therapy she still will need PT/OT to help with ADLs, her unsteady gait and to monitor her oxygen saturations. Patient is homebound due to recent surgery, weakness and the requirement of having occupational and physical therapy. The patient will be followed by myself Joel Pizarro in the community setting and will sign home health orders - Patient Data Vitals - Most Recent: Last Vital Signs Temp 97.5 F 08/06/20 09:00 Pulse 73 08/06/20 09:00 Resp 18 08/06/20 09:00 BP 168/54 H 08/06/20 09:00 Pulse Ox 94 L 08/06/20 09:30 Weight - Most Recent: 104 lb 12.8 oz I&O - Last 24 hours: Intake & Output 08/05/20 08/06/20 08/06/20 22:59 06:59 14:59 Intake Total 420 50 Output Total 800 600 Balance -380 -550 Med Orders - Current: Current Medications Acetaminophen (Acetaminophen 325 Mg Tab) 650 mg PO Q4H PRN PRN Reason: Pain Last Admin: 08/04/20 18:08 Dose: 650 mg Documented by: Ascorbic Acid (Ascorbic Acid 500 Mg Tab) 500 mg PO DAILY [facility] Last Admin: 08/06/20 09:00 Dose: 500 mg Documented by: Cholecalciferol (Cholecalciferol (Vitamin D3) 25 Mcg Tab) 25 mcg PO DAILY [facility] Last Admin: 08/06/20 09:00 Dose: 25 mcg Documented by: Al Hydroxide/Mg Hydroxide 5 ml / Lidocaine HCl 5 ml/Diphenhydramine HCl 12.5 mg 0 ml PO Q6H PRN PRN Reason: MILD OR MODERATE ORAL PAIN Diphenhydramine HCl (Diphenhydramine 25 Mg Cap) 25 - 50 mg PO Q4H PRN PRN Reason: Other Docusate Sodium (Docusate Sodium 100 Mg Cap) 100 mg PO BID PRN PRN Reason: Constipation Last Admin: 08/04/20 18:22 Dose: 100 mg Documented by: Enoxaparin Sodium (Enoxaparin 40 Mg/0.4 Ml Syringe) 40 mg SUBCUT DAILY [facility] Last Admin: 08/06/20 09:01 Dose: 40 mg Documented by: Hydrochlorothiazide (Hydrochlorothiazide 25 Mg Tab) 25 mg PO DAILY [facility] Last Admin: 08/06/20 09:00 Dose: 25 mg Documented by: Losartan Potassium (Losartan 50 Mg Tab) 75 mg PO DAILY [facility] Last Admin: 08/06/20 09:00 Dose: 75 mg Documented by: Magnesium Hydroxide (Magnesium Hydroxide 400 Mg/5 Ml Susp 30 Ml Cup) 30 ml PO DAILY PRN PRN Reason: Constipation Last Admin: 08/05/20 15:07 Dose: 30 ml Documented by: Ondansetron HCl (Ondansetron 4 Mg Tab.Dis) 8 mg PO TID PRN PRN Reason: Nausea/Vomiting Polyethylene Glycol (Polyethylene Glycol 3350 Powder 17 Gm Packet) 17 gm PO DAILY PRN PRN Reason: Constipation Last Admin: 08/05/20 08:48 Dose: 17 gm Documented by: Simvastatin (Simvastatin 20 Mg Tab) 20 mg PO BEDTIME [facility] Last Admin: 08/05/20 21:00 Dose: 20 mg Documented by: Tramadol HCl (Tramadol 50 Mg Tab) 50 - 100 mg PO Q6H PRN PRN Reason: Pain (moderate 4-6) Last Admin: 08/04/20 20:42 Dose: 50 mg Documented by: Discontinued Medications Aspirin (Aspirin 81 Mg Tab.Ec) 81 mg PO DAILY [facility] Last Admin: 08/03/20 08:30 Dose: Not Given Documented by: Dexamethasone (Dexamethasone 4 Mg Tab) 8 mg PO ASDIRECTED PRN PRN Reason: Inflammation Hydrochlorothiazide (Hydrochlorothiazide 12.5 Mg Cap) 12.5 mg PO DAILY [facility] Last Admin: 08/03/20 14:11 Dose: Not Given Documented by: Lidocaine/Prilocaine (Lidocaine/Prilocaine 2.5-2.5% Crm 30 Gm Tube) gm TOP ASDIRECTED PRN PRN Reason: Other Losartan Potassium (Losartan 50 Mg Tab) 50 mg PO DAILY [facility] Last Admin: 08/03/20 08:23 Dose: 50 mg Documented by: Losartan Potassium (Losartan 25 Mg Tab) 25 mg PO ONETIME ONE Stop: 08/03/20 13:46 Last Admin: 08/03/20 14:10 Dose: 25 mg Documented by: Magnesium Hydroxide (Magnesium Hydroxide 400 Mg/5 Ml Susp 30 Ml Cup) 30 ml PO DAILY PRN PRN Reason: Constipation Non-Formulary Medication (Non-Formulary Medication 1 Each) each PO Q6HR PRN PRN Reason: Pain Non-Formulary Medication (Magnesium Hydroxide [Alvarez' Milk Of Magnesia]) 311 mg PO DAILY PRN PRN Reason: Constipation Non-Formulary Medication (Olanzapine [Olanzapine]) 10 mg PO ASDIRECTED PRN PRN Reason: Other Potassium Chloride (Potassium Chloride 20 Meq Tab.Er) 40 meq PO WITHBREAKFAST [facility] Last Admin: 08/03/20 10:09 Dose: 40 meq Documented by: Potassium Chloride (Potassium Chloride 10 Meq Tab.Er) 30 meq PO DAILY [facility] Potassium Chloride (Potassium Chloride 20 Meq Tab.Er) 20 meq PO DAILY@0800 [facility] Last Admin: 08/04/20 08:18 Dose: 20 meq Documented by: Potassium Chloride (Potassium Chloride 10 Meq Tab.Er) 20 meq PO DAILY@0800 [facility] Prochlorperazine Maleate (Prochlorperazine 5 Mg Tab) 10 mg PO QID PRN PRN Reason: Nausea/Vomiting
== END 2020-08-06 12:20 | disposition home health service (06) | DRG 949 ==
LOC: KA.MS 17:55
PROVIDERS: ADMIT Nurse Practitioner Family; ATTEND Family Medicine
DX: Z48.816 Encounter for surgical aftercare following surgery on the genitourinary system (principal); C79.81 Secondary malignant neoplasm of breast; R53.83 Other fatigue; E87.6 Hypokalemia; I10 Essential (primary) hypertension; E78.00 Pure hypercholesterolemia, unspecified; D47.3 Essential (hemorrhagic) thrombocythemia; D50.9 Iron deficiency anemia, unspecified; Z20.822 Contact with and (suspected) exposure to COVID-19
CPT/HCPCS: 36415; 80048; 85025; 97161-GP; A9270-GY; J1650; U0002

== ENCOUNTER 2020-09-24 10:25 | Emergency (ER) | payer MEDICARE, OTHER ==
--- NOTE | 2020-09-24 10:38 | EDM.PDOC ---
ED HPI GENERAL MEDICAL PROBLEM - General Chief Complaint: Back Pain or Injury Stated Complaint: SOB Time Seen by Provider: 09/24/20 10:38 Source of Information: Reports: Patient History Limitations: Reports: No Limitations - History of Present Illness INITIAL COMMENTS - FREE TEXT/NARRATIVE: Isaura, 79-year-old female, presents today ambulatory accompanied by her with a "point discomfort" to the left scapular region. She states this feels superficial but is prominent to touch, with positioning not changing with motion of the shoulder. Her has not noticed any irritation to the integument. Isaura had presented to the [facility] here in [place] this morning for her routine prechemotherapy lab draws today as she is scheduled in [place] tomorrow for chemotherapy treatment. She speaks of previous thoracentesis secondary of a pleural effusion. Had some intermittent shortness of breath yesterday but stated it was related to activity and extra cooking and household activities. She had scrubbing floors and and other activity 2 days ago which may have contributed to this issue. She stated she took 200 mg of ibuprofen last night and had nearly complete resolution of the discomfort only for it to return upon awakening this morning. Does not seem to limit her activity or motion. Laboratory analysis of the CBC from [facility] is sent to us with no extraneous abnormalities considering her chemotherapy regimen. Onset: Gradual Duration: Hour(s): Location: Reports: Back Quality: Reports: Ache Severity: Moderate Improves with: Reports: Medication (Ibuprofen) Worsens with: Reports: Movement Context: Reports: Activity Associated Symptoms: Denies: Cough, cough w sputum, Fever/Chills Treatments EIGHT SECTION BLOWER: Reports: NSAIDS Left Posterior Chest Pain Score (Numeric/FACES): 5 - Related Data Allergies Allergy/AdvReac Type Severity Reaction Status Date / Time albuterol Allergy Tachycardia Verified 09/24/20 10:44 Home Meds: Home Meds Ascorbic Acid 500 mg PO DAILY 08/02/20 [History] Cholecalciferol (Vitamin D3) [Vitamin D3] 400 unit PO DAILY 08/02/20 [History] Enoxaparin [Lovenox] 40 mg SUBCUT DAILY 08/02/20 [History] Lidocaine/Prilocaine [EMLA Crm] 1 applic TOP ASDIRECTED PRN 08/02/20 [History] Losartan/Hydrochlorothiazide [Losartan-HCTZ 50-12.5 MG] 1 tab PO DAILY 08/02/20 [History] Magnesium Hydroxide [Alvarez' Milk of Magnesia] 311 mg PO DAILY PRN 08/02/20 [History] Non-Formulary Medication [NF Drug] 15 ml PO Q6HR PRN 08/02/20 [History] OLANZapine [Olanzapine] 10 mg PO ASDIRECTED PRN 08/02/20 [History] Ondansetron [Zofran Odt] 8 mg PO TID PRN 08/02/20 [History] Prochlorperazine [Compazine] 10 mg PO QID PRN 08/02/20 [History] Simvastatin [Zocor] 20 mg PO BEDTIME 08/02/20 [History] dexAMETHasone [Dexamethasone] 8 mg PO ASDIRECTED PRN 08/02/20 [History] diphenhydrAMINE [Benadryl] 25 - 50 mg PO Q4HR PRN 08/02/20 [History] hydroCHLOROthiazide [Hydrochlorothiazide] 12.5 mg PO DAILY 08/02/20 [History] traMADol [Ultram] 50 - 100 mg PO Q6H PRN 08/02/20 [History] Past Medical History Cardiovascular History: Reports: Arrhythmia, High Cholesterol Respiratory History: Reports: Other (See Below) Other Respiratory History: 08/02/20 Left Pleural Effusion with thoracentesis producing 950ml Genitourinary History: Reports: Renal Calculus Hematologic History: Reports: Iron Deficiency, Other (See Below) Other Hematologic History: Thrombocytosis Oncologic (Cancer) History: Reports: Breast, Ovarian, Other (See Below) Other Oncologic History: Stage 3C Ovarian cancer, Stage 2B Right breast cancer. Breast cancer recently diagnosed with plans for lumpectomy/mastectomy once treatment completed for ovarian cancer - Infectious Disease History Infectious Disease History: Reports: Chicken Pox - Past Surgical History Respiratory Surgical History: Reports: Thoracentesis GI Surgical History: Reports: Other (See Below) Other GI Surgeries/Procedures: Omentectomy 07/31/20 Female Surgical History: Reports: Hysterectomy, Salpingo-Oophorectomy Other Female Surgeries/Procedures: 07/31/20 Hysterectomy with Left Salpingo- oophorectomy Oncologic Surgical History: Reports: Other (See Below) Other Oncologic Surgeries/Procedures: 07/31/20 Hysterectomy, Left Salpingo- oophorectomy, Omentectomy, Tumor debulking Social & Family History - Family History Family Medical History: No Pertinent Family History Cardiac: Reports: Hypertension, Other (See Below) (heart disease) : Reports: Renal Disease/Insufficiency Oncologic: Reports: Lung - Tobacco Use Tobacco Use Status *Q: Former Tobacco User Tobacco Use Within Last Twelve Months: No - Caffeine Use Caffeine Use: Reports: Coffee, Soda - Alcohol Use Alcohol Use Frequency: Rarely ED ROS GENERAL - Review of Systems Review Of Systems: Comprehensive ROS is negative, except as noted in HPI. ED EXAM, GENERAL - Physical Exam Exam: See Below Free Text/Narrative:: Alert oriented with no cyanosis nor pallor. She is able to speak in complete sentences with no shortness of breath. HEENT is negative to discharge or deformity. Neck is soft supple with no tenderness no lymphadenopathy appreciated. Thorax is mildly diminished left base in comparison to the right with no wheezes nor crackles. Cardiac is S1-S2 with no murmur appreciated. Examination posterior thorax reveals no appearance change in the integument. I am able to locate the point of tenderness being slightly medial of the midline of the scapula. There is no mass nor nodule palpable. Keeping my finger in direct contact while she reaches around the safety and hugging herself the change in positioning of the scapula does not change the point of tenderness as it remains prominent under my fingertip. No mass nor nodule is palpated with any manipulation or positioning of the left shoulder. We discussed reviewing labs that were already drawn and obtaining a chest x-ray. Course - Vital Signs Last Recorded V/S: Last Vital Signs Temp 97.2 F 09/24/20 10:37 Pulse 69 09/24/20 10:37 Resp 18 09/24/20 10:37 BP 143/57 H 09/24/20 10:37 Pulse Ox 96 09/24/20 10:37 - Radiology Interpretation Free Text/Narrative:: Copy of the chest x-ray will be sent to [facility] per radiology department. She is given a copy of the report to hand carry as comparisons from her previous imaging were recommended to help determine the potential mass versus hilar adenopathy noted on today's chest x-ray. She will follow up with her primary oncologist tomorrow for her chemotherapy and further recommendations. Departure - Departure Time of Disposition: 11:31 Disposition: Home, Self-Care 01 Condition: Good Clinical Impression: Pain of left scapula - Discharge Information *PRESCRIPTION DRUG MONITORING PROGRAM REVIEWED*: Not Applicable *COPY OF PRESCRIPTION DRUG MONITORING REPORT IN PATIENT ONI: Not Applicable Referrals: Lyric Starr PA-C [Primary Care Provider] - Forms: ED Department Discharge Additional Instructions: You may use your ibuprofen as needed, like yesterday since it seemingly works to help your pain. You may plan for your regular routine today and present tomorrow for your chemotherapy as scheduled. Lab work will result in be sent through the [facility] system to have the oncology department review. We will get the images of the chest x-ray to [facility] for their review and I will include a copy of the report for you to hand carry for your appointment. They will make the decision at that time as to what next steps would be needed any evaluation. As this seems superficial is possible that a muscle or nerve impingement occurred after your scrubbing floors and strenuous activity the past few days. Follow-up with your clinic as needed and scheduled continue your medications as directed. Sepsis Event Note (ED) - Focused Exam Vital Signs: Vital Signs Temp Pulse Resp BP Pulse Ox 09/24/20 10:37 97.2 F 69 18 143/57 H 96 - Problem List & Annotations (1) Pain of left scapula SNOMED Code(s): 055138786 Code(s): M89.8X1 - OTHER SPECIFIED DISORDERS OF BONE, SHOULDER Status: Acute Current Visit: Yes (2) Pleural effusion on left SNOMED Code(s): 51805170 Code(s): J90 - PLEURAL EFFUSION, NOT ELSEWHERE CLASSIFIED Status: Acute Priority: High Current Visit: Yes (3) Hilar adenopathy SNOMED Code(s): 89214061 Code(s): R59.0 - LOCALIZED ENLARGED LYMPH NODES Status: Suspected Priority: High Current Visit: Yes - Problem List Review Problem List Initiated/Reviewed/Updated: Yes - Assessment/Plan Plan: You may use your ibuprofen as needed, like yesterday since it seemingly works to help your pain. You may plan for your regular routine today and present tomorrow for your chemotherapy as scheduled. Lab work will result in be sent through the [facility] system to have the oncology department review. We will get the images of the chest x-ray to [facility] for their review and I will include a copy of the report for you to hand carry for your appointment. They will make the decision at that time as to what next steps would be needed any evaluation. As this seems superficial is possible that a muscle or nerve impingement occurred after your scrubbing floors and strenuous activity the past few days. Follow-up with your clinic as needed and scheduled continue your medications as directed. Return to the emergency department if your symptoms worsen.
--- NOTE | 2020-09-24 11:20 | CR ---
[id number] RAD/RAD Chest PA And Lateral EXAM: FRONTAL AND LATERAL CHEST INDICATION: Posterior scapular pain, cancer and prior thoracentesis. COMPARISON: None. DISCUSSION: Hyperinflation is compatible with COPD. There is mild left hilar fullness which could relate to underlying adenopathy or a mass. Small left pleural effusion with associated left base atelectasis. No pneumothorax is identified. Left subclavian approach port tip overlying SVC. Borderline heart size. IMPRESSION: 1. Small left pleural effusion. 2. Left hilar fullness may relate to an underlying mass or adenopathy. Correlate with available cross-sectional imaging if available. Demarco Batista MD 09/24/20 [id number] Thank you for allowing us to participate in the care of your patient.
== END 2020-09-24 11:45 | disposition home or self-care (01) ==
LOC: KA.ED 10:25
DX: M25.512 Pain in left shoulder (principal); Z88.8 Allergy status to other drugs, medicaments and biological substances; E78.00 Pure hypercholesterolemia, unspecified; Z79.01 Long term (current) use of anticoagulants; Z79.899 Other long term (current) drug therapy; Z87.891 Personal history of nicotine dependence
CPT/HCPCS: 71046; 99283; 99283-25

== ENCOUNTER 2020-11-05 11:13 | Emergency (ER) | payer MEDICARE, OTHER ==
--- NOTE | 2020-11-05 11:44 | EDM.PDOC ---
ED HPI GENERAL MEDICAL PROBLEM - General Chief Complaint: Respiratory Problem Stated Complaint: SOB Time Seen by Provider: 11/05/20 11:25 Source of Information: Reports: Patient, Family, Other (spouse) History Limitations: Reports: No Limitations - History of Present Illness INITIAL COMMENTS - FREE TEXT/NARRATIVE: Presents to the emergency room with private vehicle with her spouse for the chief complaint of shortness of breath for 1 week. In the last 2 days it has been progressively worsening. Patient notes having shortness of breath only with exertion, not at rest. Patient denies any upper respiratory infection symptoms cold,fever, or chills. Patient felt her heart racing a couple days ago for a brief period of time for a few minutes. That is gone away. She has no chest pain. No leg swelling or calf pain or signs of DVT. Patient does have history of active uterine and breast cancer at this time. She is currently receiving treatment. She had 3 rounds of chemotherapy earlier this year then she had surgery to remove her uterus and ovary. And she followed up with 3 more rounds of chemotherapy the last time she had chemotherapy was 2 weeks ago. She does have an appointment tomorrow with her oncologist for follow-up. - Related Data Allergies Allergy/AdvReac Type Severity Reaction Status Date / Time albuterol Allergy Tachycardia Verified 11/05/20 11:28 Home Meds: Home Meds Ascorbic Acid 500 mg PO DAILY 08/02/20 [History] Cholecalciferol (Vitamin D3) [Vitamin D3] 400 unit PO DAILY 08/02/20 [History] Lidocaine/Prilocaine [EMLA Crm] 1 applic TOP ASDIRECTED PRN 08/02/20 [History] Magnesium Hydroxide [Alvarez' Milk of Magnesia] 311 mg PO DAILY PRN 08/02/20 [History] Non-Formulary Medication [NF Drug] 15 ml PO Q6HR PRN 08/02/20 [History] OLANZapine [Olanzapine] 10 mg PO ASDIRECTED PRN 08/02/20 [History] Ondansetron [Zofran Odt] 8 mg PO TID PRN 08/02/20 [History] Prochlorperazine [Compazine] 10 mg PO QID PRN 08/02/20 [History] Simvastatin [Zocor] 20 mg PO BEDTIME 08/02/20 [History] dexAMETHasone [Dexamethasone] 8 mg PO ASDIRECTED PRN 08/02/20 [History] diphenhydrAMINE [Benadryl] 25 - 50 mg PO Q4HR PRN 08/02/20 [History] traMADol [Ultram] 50 - 100 mg PO Q6H PRN 08/02/20 [History] Aspirin [Halfprin] 81 mg PO DAILY 09/24/20 [History] Losartan/Hydrochlorothiazide [Losartan-HCTZ 100-25 MG] 1 each PO DAILY 09/24/20 [History] Folic Acid 1 mg PO DAILY 11/05/20 [History] Past Medical History Cardiovascular History: Reports: Arrhythmia, High Cholesterol Respiratory History: Reports: Other (See Below) Other Respiratory History: 08/02/20 Left Pleural Effusion with thoracentesis producing 950ml Genitourinary History: Reports: Renal Calculus Hematologic History: Reports: Iron Deficiency, Other (See Below) Other Hematologic History: Thrombocytosis Oncologic (Cancer) History: Reports: Breast, Ovarian, Other (See Below) Other Oncologic History: Stage 3C Ovarian cancer, Stage 2B Right breast cancer. Breast cancer recently diagnosed with plans for lumpectomy/mastectomy once treatment completed for ovarian cancer - Infectious Disease History Infectious Disease History: Reports: Chicken Pox - Past Surgical History Respiratory Surgical History: Reports: Thoracentesis GI Surgical History: Reports: Other (See Below) Other GI Surgeries/Procedures: Omentectomy 07/31/20 Female Surgical History: Reports: Hysterectomy, Salpingo-Oophorectomy Other Female Surgeries/Procedures: 07/31/20 Hysterectomy with Left Salpingo- oophorectomy Oncologic Surgical History: Reports: Other (See Below) Other Oncologic Surgeries/Procedures: 07/31/20 Hysterectomy, Left Salpingo- oophorectomy, Omentectomy, Tumor debulking Social & Family History - Family History Family Medical History: No Pertinent Family History Cardiac: Reports: Hypertension, Other (See Below) (heart disease) : Reports: Renal Disease/Insufficiency Oncologic: Reports: Lung - Caffeine Use Caffeine Use: Reports: Coffee, Soda ED ROS GENERAL - Review of Systems Review Of Systems: Comprehensive ROS is negative, except as noted in HPI. Constitutional: Reports: No Symptoms. Denies: Fever, Chills Respiratory: Reports: Shortness of Breath, Other (SOB when she over works her self) Cardiovascular: Reports: Dyspnea on Exertion ED EXAM, GENERAL - Physical Exam Exam: See Below Exam Limited By: No Limitations General Appearance: Alert, WD/WN, No Apparent Distress Throat/Mouth: Normal Inspection, Normal Lips, Normal Oropharynx Head: Atraumatic, Normocephalic Neck: Normal Inspection, Supple, Non-Tender Respiratory/Chest: No Respiratory Distress, Lungs Clear, Decreased Breath Sounds Cardiovascular: Normal Peripheral Pulses, Regular Rate, Rhythm, No Murmur Peripheral Pulses: 2+: Radial (L), Radial (R), Posterior Tibial (L), Posterior Tibial (R), Dorsalis Pedis (L), Dorsalis Pedis (R) GI/Abdominal: Normal Bowel Sounds, Soft, Non-Tender Back Exam: Normal Inspection, Full Range of Motion Extremities: Normal Inspection, Normal Range of Motion Neurological: Alert, Oriented, Normal Cognition, Normal Gait Psychiatric: Normal Affect, Normal Mood Skin Exam: Warm, Dry, Intact, Pallor #1 Interpretation EKG Date: 11/05/20 Time: 11:40 Rhythm: NSR Rate (Beats/Min): 65 [place]: Normal P-Wave: Present QRS: Normal ST-T: Normal QT: Normal Comparison: NA - No Prior EKG Course - Vital Signs Last Recorded V/S: Last Vital Signs Temp 97.8 F 11/05/20 11:33 Pulse 66 11/05/20 11:33 Resp 18 11/05/20 11:33 BP 139/67 11/05/20 11:33 Pulse Ox 97 11/05/20 11:33 - Orders/Labs/Meds Orders: Active Orders 24 hr Category Date Time Status EKG Documentation Completion [RC] ASDIRECTED Care 11/05/20 11:27 Active EKG 12 Lead [EK] Stat Ther 11/05/20 11:26 Ordered Labs: Laboratory Tests 11/05/20 11/05/20 11/05/20 Range/Units 11:26 11:45 11:45 WBC 3.25 L (5.00-10.00) 10^3/uL RBC 2.71 L (3.80-5.50) 10^6/uL Hgb 8.4 L D (12.0-16.0) g/dL Hct 26.2 L (37.0-47.0) % MCV 96.7 H D (82.0-92.0) fL MCH 31.0 (27.0-31.0) pg MCHC 32.1 (32.0-36.0) g/dL RDW 21.6 H (11.5-14.5) % Plt Count 188 D (150-400) 10^3/uL MPV 10.0 (7.4-10.4) fL Immature Gran % (Auto) 0.0 (0.0-5.0) % Neut % (Auto) 67.1 (50.0-70.0) % Lymph % (Auto) 21.8 (20.0-40.0) % [place] % (Auto) 10.8 H (2.0-8.0) % Eos % (Auto) 0.0 L (1.0-3.0) % Baso % (Auto) 0.3 (0.0-1.0) % Neut # (Auto) 2.18 L (2.50-7.00) 10^3/uL Lymph # (Auto) 0.71 L (1.00-4.00) 10^3/uL [place] # (Auto) 0.35 (0.10-0.80) 10^3/uL Eos # (Auto) 0.00 L (0.10-0.30) 10^3/uL Baso # (Auto) 0.01 (0.00-0.10) 10^3/uL Immature Gran # (Auto) 0.00 (0.00-0.50) 10^3/uL Sodium 140 (136-145) mmol/L Potassium 4.2 (3.5-5.1) mmol/L Chloride 100 (98-107) mmol/L Carbon Dioxide 33.5 H (21.0-32.0) mmol/L Anion Gap 10.7 (5-15) mmol/L BUN 7 (7-18) mg/dL Creatinine 0.81 (0.51-1.17) mg/dL Est Cr Clr Drug Dosing 41.78 mL/min Estimated GFR (MDRD) > 60 mL/min Glucose 106 (70-140) mg/dL Lactic Acid 1.1 (0.4-2.0) mmol/L Calcium 8.4 L (8.7-10.3) mg/dL Total Bilirubin 0.1 L (0.2-1.0) mg/dL AST 13 L (15-37) U/L ALT 20 (14-63) U/L Alkaline Phosphatase 83 (46-116) U/L Troponin I High Sens 9.900 (0-51.000) pg/mL B-Natriuretic Peptide (0-100) pg/mL Total Protein 6.8 (6.4-8.2) g/dL Albumin 3.60 (3.40-5.00) g/dL 11/05/20 Range/Units 11:45 WBC (5.00-10.00) 10^3/uL RBC (3.80-5.50) 10^6/uL Hgb (12.0-16.0) g/dL Hct (37.0-47.0) % MCV (82.0-92.0) fL MCH (27.0-31.0) pg MCHC (32.0-36.0) g/dL RDW (11.5-14.5) % Plt Count (150-400) 10^3/uL MPV (7.4-10.4) fL Immature Gran % (Auto) (0.0-5.0) % Neut % (Auto) (50.0-70.0) % Lymph % (Auto) (20.0-40.0) % [place] % (Auto) (2.0-8.0) % Eos % (Auto) (1.0-3.0) % Baso % (Auto) (0.0-1.0) % Neut # (Auto) (2.50-7.00) 10^3/uL Lymph # (Auto) (1.00-4.00) 10^3/uL [place] # (Auto) (0.10-0.80) 10^3/uL Eos # (Auto) (0.10-0.30) 10^3/uL Baso # (Auto) (0.00-0.10) 10^3/uL Immature Gran # (Auto) (0.00-0.50) 10^3/uL Sodium (136-145) mmol/L Potassium (3.5-5.1) mmol/L Chloride (98-107) mmol/L Carbon Dioxide (21.0-32.0) mmol/L Anion Gap (5-15) mmol/L BUN (7-18) mg/dL Creatinine (0.51-1.17) mg/dL Est Cr Clr Drug Dosing mL/min Estimated GFR (MDRD) mL/min Glucose (70-140) mg/dL Lactic Acid (0.4-2.0) mmol/L Calcium (8.7-10.3) mg/dL Total Bilirubin (0.2-1.0) mg/dL AST (15-37) U/L ALT (14-63) U/L Alkaline Phosphatase (46-116) U/L Troponin I High Sens (0-51.000) pg/mL B-Natriuretic Peptide 75 (0-100) pg/mL Total Protein (6.4-8.2) g/dL Albumin (3.40-5.00) g/dL - Re-Assessments/Exams Free Text/Narrative Re-Assessment/Exam: 11/05/20 11:51 ekg, xray obtained, labs drawn pending, she is symptom free, no sob or cp or feeling of her heart racing, she can carry a full conversation without becoming SOB. 11/05/20 12:38 Labs returned slightly low hemoglobin which would be expected with her medical problems she did recently get a vitamin B12 shot she has close follow-up with oncologist tomorrow with labs CBC/CMP. Therefore patient will take these values and have them for the oncologist tomorrow. Negative troponin negative BNP x- ray no change from previous in September. She has been asymptomatic throughout entire visit shortness of breath with exertion which is to be expected having slightly lower hemoglobin. No signs of pneumonia or infection. Departure - Departure Time of Disposition: 12:36 Disposition: Home, Self-Care 01 Clinical Impression: SOB (shortness of breath) on exertion, Cancer Anemia Qualifiers: Anemia type: unspecified type Qualified Code(s): D64.9 - Anemia, unspecified - Discharge Information *PRESCRIPTION DRUG MONITORING PROGRAM REVIEWED*: No *COPY OF PRESCRIPTION DRUG MONITORING REPORT IN PATIENT ONI: No Instructions: Shortness of Breath, Adult, [id number] Referrals: Lyric Starr PA-C [Primary Care Provider] - Forms: ED Department Discharge Additional Instructions: f/u with your scheduled doctor's appt tomorrow. Sepsis Event Note (ED) - Focused Exam Vital Signs: Vital Signs Temp Pulse Resp BP Pulse Ox 11/05/20 11:33 97.8 F 66 18 139/67 97 - My Orders Last 24 Hours: My Active Orders 11/05/20 11:26 EKG 12 Lead [EK] Stat 11/05/20 11:27 EKG Documentation Completion [RC] ASDIRECTED - Assessment/Plan Last 24 Hours: My Active Orders 11/05/20 11:26 EKG 12 Lead [EK] Stat 11/05/20 11:27 EKG Documentation Completion [RC] ASDIRECTED
--- NOTE | 2020-11-05 12:15 | CR ---
[id number] RAD/RAD Chest PA And Lateral EXAM: RAD Chest PA And Lateral INDICATION: SHORT OF BREATH. COMPARISON: September 24, 2020. DISCUSSION: Cardiomediastinal silhouette is stable in size and contour. Pulmonary hyperinflation. Small left pleural effusion. No pneumothorax. The right lung is clear. Left chest wall Mediport with tip overlying the upper superior vena cava. IMPRESSION: Small left pleural effusion. Irving Coley DO 11/05/20 [id number] Thank you for allowing us to participate in the care of your patient.
[2020-11-05 12:17] LABS: ANION GAP 10.7 mmol/L (5-15); CHLORIDE,CL 100 mmol/L (98-107); SODIUM,NA 140 mmol/L (136-145)
== END 2020-11-05 12:50 | disposition home or self-care (01) ==
LOC: KA.ED 11:17
DX: R06.02 Shortness of breath (principal); C55 Malignant neoplasm of uterus, part unspecified; C50.012 Malignant neoplasm of nipple and areola, left female breast; D64.9 Anemia, unspecified; E78.00 Pure hypercholesterolemia, unspecified; Z88.8 Allergy status to other drugs, medicaments and biological substances; Z79.899 Other long term (current) drug therapy; Z79.82 Long term (current) use of aspirin
CPT/HCPCS: 36415; 71046; 80053; 83605; 83880; 84484; 85025; 93005; 99284; 99285-25

== ENCOUNTER 2021-03-29 22:00 | Emergency (ER) | payer MEDICARE, OTHER ==
[2021-03-29] MEDS ORDERED: Lidocaine/Prilocaine 2.5-2.5% Crm 5 GM Tube TOP ONE (22:31)
[2021-03-29 23:01] LABS: ANION GAP 12.4 mmol/L (5-15)
[2021-03-29] MEDS ORDERED: Sodium Chloride 0.9% 1,000 ML IV ONE (23:12)
--- NOTE | 2021-03-29 23:19 | EDM.PDOC ---
ED HPI GENERAL MEDICAL PROBLEM - General Chief Complaint: Respiratory Problem Stated Complaint: SOB Time Seen by Provider: 03/29/21 22:56 Source of Information: Reports: Patient, Family (daughter) History Limitations: Reports: No Limitations - History of Present Illness INITIAL COMMENTS - FREE TEXT/NARRATIVE: Patient presents with dyspnea. Her daughter, a nurse, says she has been pale and cyanotic for the last 4 days. She has COPD and is taking chemo for ovarian cancer. She had a complete hysterectomy in July 2020 and had large pleural effusions following surgery. The last one that was drained was in August. She has never been on home oxygen; her daughter is visiting from [place] so hasn't been with her mother a lot until the last few days. They don't have ability check oxygen saturations at home but she is guessing that her mother has been having low sats for quite awhile. The patient is more concerned about the decrease in energy she is having. - Related Data Allergies Allergy/AdvReac Type Severity Reaction Status Date / Time albuterol Allergy Tachycardia Verified 03/29/21 22:49 Home Meds: Home Meds Ascorbic Acid 500 mg PO DAILY 08/02/20 [History] Cholecalciferol (Vitamin D3) [Vitamin D3] 400 unit PO DAILY 08/02/20 [History] Lidocaine/Prilocaine [EMLA Crm] 1 applic TOP ASDIRECTED PRN 08/02/20 [History] Simvastatin [Zocor] 20 mg PO BEDTIME 08/02/20 [History] Aspirin [Halfprin] 81 mg PO DAILY 09/24/20 [History] Losartan/Hydrochlorothiazide [Losartan-HCTZ 100-25 MG] 1 each PO DAILY 09/24/20 [History] Folic Acid 1 mg PO DAILY 11/05/20 [History] Docusate Sodium [Colace] 100 mg PO DAILY 03/29/21 [History] Gabapentin [Neurontin] 300 mg PO TID 03/29/21 [History] Ondansetron [Zofran ODT] 4 mg PO Q6H PRN 03/29/21 [History] Vitamin B6-pyridOXINE [Vitamin B6] 50 mg PO BID 03/29/21 [History] Past Medical History Cardiovascular History: Reports: Arrhythmia, High Cholesterol Respiratory History: Reports: Other (See Below) Other Respiratory History: 08/02/20 Left Pleural Effusion with thoracentesis producing 950ml Genitourinary History: Reports: Renal Calculus Hematologic History: Reports: Iron Deficiency, Other (See Below) Other Hematologic History: Thrombocytosis Oncologic (Cancer) History: Reports: Breast, Ovarian, Other (See Below) Other Oncologic History: Stage 3C Ovarian cancer, Stage 2B Right breast cancer. Breast cancer recently diagnosed with plans for lumpectomy/mastectomy once treatment completed for ovarian cancer - Infectious Disease History Infectious Disease History: Reports: Chicken Pox - Past Surgical History Respiratory Surgical History: Reports: Thoracentesis GI Surgical History: Reports: Other (See Below) Other GI Surgeries/Procedures: Omentectomy 07/31/20 Female Surgical History: Reports: Hysterectomy, Salpingo-Oophorectomy Other Female Surgeries/Procedures: 07/31/20 Hysterectomy with Left Salpingo- oophorectomy Oncologic Surgical History: Reports: Other (See Below) Other Oncologic Surgeries/Procedures: 07/31/20 Hysterectomy, Left Salpingo- oophorectomy, Omentectomy, Tumor debulking Social & Family History - Family History Family Medical History: No Pertinent Family History Cardiac: Reports: Hypertension, Other (See Below) (heart disease) : Reports: Renal Disease/Insufficiency Oncologic: Reports: Lung - Tobacco Use Tobacco Use Status *Q: Former Tobacco User Used Tobacco, but Quit: Yes Month/Year Tobacco Last Used: 04/05/1989 - Caffeine Use Caffeine Use: Reports: Coffee, Soda - Recreational Drug Use Recreational Drug Use: No ED ROS GENERAL - Review of Systems Review Of Systems: See Below Constitutional: Reports: Malaise, Weakness, Decreased Appetite. Denies: Fever, Chills HEENT: Denies: Ear Pain, Throat Pain, Vision Change Respiratory: Reports: Shortness of Breath. Denies: Cough Cardiovascular: Denies: Chest Pain, Lightheadedness, Syncope Endocrine: Reports: Fatigue GI/Abdominal: Denies: Abdominal Pain, Diarrhea, Vomiting : Denies: Dysuria, Flank Pain Musculoskeletal: Reports: No Symptoms Skin: Reports: Cyanosis, Pallor. Denies: Jaundice, Mottled Neurological: Denies: Confusion, Dizziness, Seizure, Syncope, Trouble Speaking, Difficulty Walking Psychiatric: Denies: Agitation, Anxiety, Confusion ED EXAM, GENERAL - Physical Exam Exam: See Below Exam Limited By: No Limitations General Appearance: Alert, WD/WN, No Apparent Distress Eye Exam: Bilateral Eye: EOMI, Normal Inspection, PERRL Ears: Normal External Exam, Hearing Grossly Normal Nose: Normal Inspection, No Blood Throat/Mouth: Normal Inspection, Normal Lips, Normal Voice, No Airway Compromise Head: Atraumatic, Normocephalic Neck: Normal Inspection, Full Range of Motion Respiratory/Chest: No Respiratory Distress (nothing obvious at the moment), Decreased Breath Sounds (throughout), Crackles (faint in bases), Wheezing (faint) Cardiovascular: Regular Rate, Rhythm, No Murmur GI/Abdominal: Normal Bowel Sounds, Soft, Non-Tender, No Organomegaly, No Distention Back Exam: Normal Inspection, Full Range of Motion. No: CVA Tenderness (L), CVA Tenderness (R) Extremities: Normal Inspection, Normal Range of Motion, No Pedal Edema (not currently but has had and is now wearing compression socks). No: Pallor Neurological: Alert, Oriented, Normal Cognition, No Motor/Sensory Deficits Psychiatric: Normal Affect, Normal Mood Skin Exam: Warm, Dry, Intact, Normal Color, No Rash ( ) Course - Vital Signs Last Recorded V/S: Last Vital Signs Temp 97.1 F 03/30/21 01:41 Pulse 71 03/30/21 01:41 Resp 24 H 03/30/21 01:41 BP 117/57 L 03/30/21 01:41 Pulse Ox 96 03/30/21 01:41 - Orders/Labs/Meds Orders: Active Orders 24 hr Category Date Time Status CXR [Chest 2V] [CR] Stat Exams 03/29/21 23:29 Ordered Chest 1V Frontal [CR] Stat Exams 03/29/21 22:28 Ordered EKG 12 Lead [EK] Stat Ther 03/29/21 22:28 Ordered Labs: Laboratory Tests 03/29/21 03/29/21 03/29/21 Range/Units 22:30 22:30 22:30 WBC 6.87 (5.00-10.00) 10^3/uL RBC 3.56 L (3.80-5.50) 10^6/uL Hgb 10.2 L D (12.0-16.0) g/dL Hct 32.8 L (37.0-47.0) % MCV 92.1 H D (82.0-92.0) fL MCH 28.7 (27.0-31.0) pg MCHC 31.1 L (32.0-36.0) g/dL RDW 17.1 H (11.5-14.5) % Plt Count 421 H D (150-400) 10^3/uL MPV 8.4 (7.4-10.4) fL Immature Gran % (Auto) 0.1 (0.0-5.0) % Neut % (Auto) 82.6 H (50.0-70.0) % Lymph % (Auto) 5.5 L (20.0-40.0) % [place] % (Auto) 11.1 H (2.0-8.0) % Eos % (Auto) 0.4 L (1.0-3.0) % Baso % (Auto) 0.3 (0.0-1.0) % Neut # (Auto) 5.67 (2.50-7.00) 10^3/uL Lymph # (Auto) 0.38 L (1.00-4.00) 10^3/uL [place] # (Auto) 0.76 (0.10-0.80) 10^3/uL Eos # (Auto) 0.03 L (0.10-0.30) 10^3/uL Baso # (Auto) 0.02 (0.00-0.10) 10^3/uL Immature Gran # (Auto) 0.01 (0.00-0.50) 10^3/uL Sodium 131 L (136-145) mmol/L Potassium 4.3 (3.5-5.1) mmol/L Chloride 94 L (98-107) mmol/L Carbon Dioxide 28.9 (21.0-32.0) mmol/L Anion Gap 12.4 (5-15) mmol/L BUN 31 H (7-18) mg/dL Creatinine 1.65 H (0.51-1.17) mg/dL Est Cr Clr Drug Dosing 20.18 mL/min Estimated GFR (MDRD) 30 mL/min Glucose 121 (70-140) mg/dL Lactic Acid 1.5 (0.4-2.0) mmol/L Calcium 8.1 L (8.7-10.3) mg/dL Total Bilirubin 0.2 (0.2-1.0) mg/dL AST 17 (15-37) U/L ALT 18 (14-63) U/L Alkaline Phosphatase 75 (46-116) U/L B-Natriuretic Peptide (0-100) pg/mL Total Protein 6.8 (6.4-8.2) g/dL Albumin 2.50 L (3.40-5.00) g/dL SARS CoV-2 RNA Rapid ARELY (NEGATIVE) 03/29/21 03/29/21 Range/Units 22:42 23:08 WBC (5.00-10.00) 10^3/uL RBC (3.80-5.50) 10^6/uL Hgb (12.0-16.0) g/dL Hct (37.0-47.0) % MCV (82.0-92.0) fL MCH (27.0-31.0) pg MCHC (32.0-36.0) g/dL RDW (11.5-14.5) % Plt Count (150-400) 10^3/uL MPV (7.4-10.4) fL Immature Gran % (Auto) (0.0-5.0) % Neut % (Auto) (50.0-70.0) % Lymph % (Auto) (20.0-40.0) % [place] % (Auto) (2.0-8.0) % Eos % (Auto) (1.0-3.0) % Baso % (Auto) (0.0-1.0) % Neut # (Auto) (2.50-7.00) 10^3/uL Lymph # (Auto) (1.00-4.00) 10^3/uL [place] # (Auto) (0.10-0.80) 10^3/uL Eos # (Auto) (0.10-0.30) 10^3/uL Baso # (Auto) (0.00-0.10) 10^3/uL Immature Gran # (Auto) (0.00-0.50) 10^3/uL Sodium (136-145) mmol/L Potassium (3.5-5.1) mmol/L Chloride (98-107) mmol/L Carbon Dioxide (21.0-32.0) mmol/L Anion Gap (5-15) mmol/L BUN (7-18) mg/dL Creatinine (0.51-1.17) mg/dL Est Cr Clr Drug Dosing mL/min Estimated GFR (MDRD) mL/min Glucose (70-140) mg/dL Lactic Acid (0.4-2.0) mmol/L Calcium (8.7-10.3) mg/dL Total Bilirubin (0.2-1.0) mg/dL AST (15-37) U/L ALT (14-63) U/L Alkaline Phosphatase (46-116) U/L B-Natriuretic Peptide 790 H (0-100) pg/mL Total Protein (6.4-8.2) g/dL Albumin (3.40-5.00) g/dL SARS CoV-2 RNA Rapid ARELY Negative (NEGATIVE) Meds: Medications Discontinued Medications Generic Name Dose Route Start Last Admin Trade Name Freq PRN Reason Stop Dose Admin Furosemide 40 mg 03/30/21 00:45 03/30/21 00:53 Furosemide 40 Mg/4 Ml Vial IVPUSH 03/30/21 00:46 40 mg NOW ONE Administration Sodium Chloride 1,000 mls @ 999 mls/hr 03/29/21 23:12 03/29/21 23:45 Normal Saline IV 03/30/21 00:12 999 mls/hr .BOLUS ONE Administration Lidocaine/Prilocaine 1 gm 03/29/21 22:31 03/29/21 22:37 Lidocaine/Prilocaine 2.5-2.5% Crm 5 Gm Tube TOP 03/29/21 22:32 1 applic ONETIME ONE Administration - Re-Assessments/Exams Free Text/Narrative Re-Assessment/Exam: 03/30/21 00:10 CXR shows moderate to large left pleural effusion and possible small right pleural effusion. BUN and Creatinine are elevated which appears new compared with some recent labs. Oxygen sats are stable in mid 90's on 2 liters of oxygen. Discussed findings and treatment recommendations with patient and her daughter. She would like to go to [facility] in [place] since her oncologist is there. I called [facility] there and am waiting for call back from ER doc. 03/30/21 00:33 EKG shows NSR with HR 73 and inverted T-waves in V3 and V4. The [facility] ER MD called and discussed case; he wants to discuss case with their hospitalist before he accepts patient. 03/30/21 01:36 [facility] called back with acceptance and wants Lasix 40 IVP now too. I informed him that we have given a liter of NS for the BUN and Creatinine. Discussed findings and treatment plan with patient and her daughter and . Departure - Departure Time of Disposition: 01:34 Disposition: DC/Tfer to Acute Hospital 02 Condition: Fair Clinical Impression: Recurrent left pleural effusion, Hypoxemia requiring supplemental oxygen ARF (acute renal failure) Qualifiers: Acute renal failure type: unspecified Qualified Code(s): N17.9 - Acute kidney failure, unspecified - Discharge Information Forms: ED Department Discharge Sepsis Event Note (ED) - Evaluation Sepsis Screening Result: No Definite Risk - Focused Exam Vital Signs: Vital Signs Temp Pulse Resp BP Pulse Ox 03/30/21 01:41 97.1 F 71 24 H 117/57 L 96 03/30/21 00:56 70 24 H 130/62 94 L 03/29/21 23:53 71 1 L 123/56 L 99 03/29/21 23:00 78 16 129/66 93 L 03/29/21 22:00 97.3 F 88 24 H 117/52 L 53 L - My Orders Last 24 Hours: My Active Orders 03/29/21 22:28 Chest 1V Frontal [CR] Stat EKG 12 Lead [EK] Stat 03/29/21 23:29 CXR [Chest 2V] [CR] Stat - Assessment/Plan Last 24 Hours: My Active Orders 03/29/21 22:28 Chest 1V Frontal [CR] Stat EKG 12 Lead [EK] Stat 03/29/21 23:29 CXR [Chest 2V] [CR] Stat
[2021-03-30] MEDS ORDERED: Furosemide 40 MG/4 ML VIAL IVPUSH ONE (00:45)
--- NOTE | 2021-03-30 12:44 | CR ---
[id number] RAD/RAD Chest Portable EXAM: PORTABLE CHEST RADIOGRAPH. INDICATION: SHORTNESS OF BREATH COMPARISON: CORRELATION IS MADE WITH SEPTEMBER 24, 2020 FINDINGS: There is increase in size of the left-sided loculated pleural fluid collection The right lung is clear There are surgical changes of the right breast The chest port is seen The cardiac silhouette is enlarged. IMPRESSION: INCREASING LOCULATED LEFT EFFUSION CONSIDER CONTRAST CT CHEST Matt Acosta MD 03/30/21 [id number] Thank you for allowing us to participate in the care of your patient.
--- NOTE | 2021-03-30 12:45 | CR ---
[id number] RAD/RAD Chest PA And Lateral EXAM: RAD Chest PA And Lateral CLINICAL DATA: POSSIBLE PNEUMOTHORAX DIFFICULTY BREATHING COMPARISON: CORRELATION IS MADE WITH THE EARLIER EXAM TODAY FINDINGS: There is no pneumothorax There is a loculated effusion at the left lung base Contrast CT chest would be helpful IMPRESSION: NO PNEUMOTHORAX Mtat Acosta MD 03/30/21 [id number] Thank you for allowing us to participate in the care of your patient.
== END 2021-03-30 02:00 ==
LOC: KA.ED 22:00
DX: J90 Pleural effusion, not elsewhere classified (principal); R09.02 Hypoxemia; N17.9 Acute kidney failure, unspecified; Z88.8 Allergy status to other drugs, medicaments and biological substances; Z79.82 Long term (current) use of aspirin; Z79.899 Other long term (current) drug therapy; Z87.891 Personal history of nicotine dependence; Z20.822 Contact with and (suspected) exposure to COVID-19
CPT/HCPCS: 36415; 71045; 71046; 80053; 83605; 83880; 85025; 96374; 99285; A9270; J1940; J7030; U0002; 99284